=== PATIENT | female | born 1970 | race Caucasian/White ===

== ENCOUNTER → 2020-07-24 15:30 | Outpatient (BNVA) | payer MEDICARE, MEDICAID, SELFPAY | PROVIDERS: Family Provider Nurse Practitioner Family; PCP Nurse Practitioner Family; Visit Provider Nurse Practitioner Family | DX: E11.9 Type 2 diabetes mellitus without complications (principal) | CPT/HCPCS: 83036 ==

== ENCOUNTER → 2020-08-01 13:26 | Outpatient (BNVA) | payer MEDICARE, MEDICAID, SELFPAY | PROVIDERS: Family Provider Nurse Practitioner Family; PCP Nurse Practitioner Family; Visit Provider Nurse Practitioner Family | DX: E11.9 Type 2 diabetes mellitus without complications (principal) | CPT/HCPCS: 80053; 80061; 82043; 84439; 84443 ==

== ENCOUNTER → 2020-12-25 08:42 | Outpatient (BNVA) | payer MEDICARE, MEDICAID, SELFPAY | PROVIDERS: Family Provider Nurse Practitioner Family; PCP Nurse Practitioner Family; Visit Provider Psychiatry & Neurology Psychiatry | DX: F43.12 Post-traumatic stress disorder, chronic (principal); F33.2 Major depressive disorder, recurrent severe without psychotic features; F14.21 Cocaine dependence, in remission; F10.21 Alcohol dependence, in remission | CPT/HCPCS: 99204 ==

== ENCOUNTER → 2021-01-04 10:48 | Outpatient (BNVA) | payer MEDICARE, MEDICAID, SELFPAY | PROVIDERS: Family Provider Nurse Practitioner Family; PCP Nurse Practitioner Family; Visit Provider Nurse Practitioner Family | DX: R05 Cough (principal); G25.81 Restless legs syndrome | CPT/HCPCS: 71046 ==

== ENCOUNTER → 2021-01-31 13:38 | Outpatient (BNVA) | payer MEDICARE, MEDICAID, SELFPAY | PROVIDERS: Family Provider Nurse Practitioner Family; PCP Nurse Practitioner Family; Visit Provider Nurse Practitioner Family | DX: Z96.7 Presence of other bone and tendon implants (principal); W19.XXXA Unspecified fall, initial encounter; M25.532 Pain in left wrist; M79.602 Pain in left arm; S63.502A Unspecified sprain of left wrist, initial encounter | CPT/HCPCS: 73090; 73110 ==

== ENCOUNTER → 2021-02-22 13:47 | Outpatient (BNVA) | payer MEDICARE, MEDICAID, SELFPAY | PROVIDERS: Family Provider Nurse Practitioner Family; PCP Nurse Practitioner Family; Visit Provider Counselor Professional | DX: F10.20 Alcohol dependence, uncomplicated (principal); F43.12 Post-traumatic stress disorder, chronic; F33.2 Major depressive disorder, recurrent severe without psychotic features | CPT/HCPCS: 90834 ==

== ENCOUNTER → 2021-03-12 08:50 | Outpatient (BNVA) | payer MEDICARE, MEDICAID, SELFPAY | PROVIDERS: Family Provider Nurse Practitioner Family; PCP Nurse Practitioner Family; Visit Provider Nurse Practitioner | DX: F43.12 Post-traumatic stress disorder, chronic (principal); F43.10 Post-traumatic stress disorder, unspecified; F33.2 Major depressive disorder, recurrent severe without psychotic features; F14.21 Cocaine dependence, in remission; F10.21 Alcohol dependence, in remission; E11.9 Type 2 diabetes mellitus without complications | CPT/HCPCS: 99214 ==

== ENCOUNTER 2021-04-24 12:18 | Emergency (ER) | payer MEDICARE, MEDICAID, SELFPAY ==
[2021-04-24 12:40] VITALS: BP 172/91; PULSE 79; RESP 16; TEMP 36.4; O2SAT 97; BMI 36.2
[2021-04-24 13:01] VITALS: BP 206/128; PULSE 83; RESP 17; O2SAT 97
--- NOTE | 2021-04-24 13:02 | XRR_ITS ---
PROCEDURE INFORMATION: Exam: XR Chest Exam date and time: 04/24/2021 1:02 PM Age: 50 years old Clinical indication: Pain; Angina and shortness of breath; Angina pectoris; Additional info: CONNOR Webster TECHNIQUE: Imaging protocol: XR of the chest. Views: Frontal portable upright view of the chest. COMPARISON: CR XR chest 2V* [id number] 01/04/2021 10:59 AM FINDINGS: Tubes, catheters and devices: EKG leads are present overlying the chest. Lungs: The lungs are clear bilaterally. The pulmonary vasculature is normal. Pleural spaces: No pleural effusion. No pneumothorax. Heart/Mediastinum: The heart is normal in size and contour. Bones/joints: Healed posterolateral left 8th rib fracture redemonstrated. XR/XR chest 1V portable [id number] IMPRESSION: No acute cardiopulmonary abnormality identified.
--- NOTE | 2021-04-24 13:02 | CT_ITS ---
WS: [id number] CT HEAD TECHNIQUE: Noncontrast CT of the head obtained from the skullbase to the vertex. CLINICAL INFORMATION: worst headache of her life, severe htn COMPARISON: None. DLP: 1729.[address] scans at [facility] use at least one of these dose optimization techniques: automat ed exposure control; mA and/or kV adjustment per patient size (includes targeted exams where dose is matched to clinical indication); or iterative reconstruction. FINDINGS: No evidence of intracranial hemorrhage or mass effect. Ventricular system and basal cisterns are christiansen nt. Mild to moderate small vessel changes with mild to moderate parenchymal volume loss. No extra-ax ial fluid collections. No evidence of mass or mass effect. Normal aldrich-white differentiation. Inciden keith slightly low-lying cerebral tonsils. Normal fourth ventricle. No hydrocephalus. Paranasal sinuses and mastoid air cells are well aerated. .Normal visualized soft tissues. CT/CT head wo con* [id number] IMPRESSION: 1. No evidence of intracranial hemorrhage or mass effect. 2. Normal aldrich-white differentiation. 3. No acute intracranial findings.
--- NOTE | 2021-04-24 13:04 | ECG_ITS ---
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 Measurements Intervals [place] Rate: 78 P: 8 VT: 161 QRS: 1 QRSD: 80 T: 26 QT: 393 QTc: 449 Interpretive Statements SINUS RHYTHM LOW QRS VOLTAGE IN PRECORDIAL LEADS [QRS DEFLECTION < 1.0 mV IN CHEST LEADS] No previous ECG available for comparison Electronically Signed On 04-25-2021 0:26:35 CDT by Trevor Barnard M.D. [id number]
[2021-04-24 13:17] LABS: Basophils % 0.4 %; Eosinophils # 0.1 10^3/uL (0.0-0.8); Eosinophils % 2.2 %; Hematocrit 37.5 % (37.0-47.0); Hemoglobin 12.5 g/dL (11.5-15.3); Lymphocytes # 0.9 10^3/uL (0.8-4.8); Lymphocytes % 20.7 %; Mean Corpuscular HGB Conc 33.3 g/dL (30.0-36.0); Mean Corpuscular Hemoglobin 33.7 pg (28.0-34.0); Mean Corpuscular Volume 101.1 fL (81-99); Mean Platelet Volume 11.2 fL (7.4-10.4); Monocytes # 0.5 10^3/uL (0.2-0.9); Monocytes % 10.1 %; Neutrophils % 65.9 %; Nucleated Red Blood Cells % 0 %; Platelet Count 133 10^3/cmm (130-400); Red Blood Count 3.71 10^6/uL (4.1-5.3); Red Cell Distribution Width 12.5 % (12.1-15.1); White Blood Count 4.6 10^3/uL (4.0-10.0)
[2021-04-24 14:10] LABS: Troponin(5th) Baseline 9 ng/L (0-10)
[2021-04-24 14:18] LABS: Alanine Aminotransferase 23 U/L (0-33); Albumin Level 3.8 g/dL (3.5-5.2); Alkaline Phosphatase 72 IU/L (35-105); Aspartate Amino Transferase 22 U/L (0-32); Blood Urea Nitrogen 6 mg/dL (6-20); C Reactive Protein 26.1 mg/L (0.0-4.9); Calcium 8.6 mg/dL (8.5-10.5); Carbon Dioxide 24 mmol/L (22-29); Chloride 102 mmol/L (98-107); Globulin 3.3 g/dL (1.3-4.6); Glomerular Filtration Rate 131.1 mL/min (90-130); Glucose 134 mg/dL (65-115); NT Pro B Type Natriuretic Pept 384 pg/mL (0-125); Osmolality Calculated 282 mOsm/kg (285-295); Sodium 136 mmol/L (136-145); Thyroid Stimulating Hormone 0.74 uIU/mL (0.27-4.20); Total Bilirubin 0.3 mg/dL (0.15-1.2); Total Protein 7.1 g/dL (6.6-8.7)
[2021-04-24 14:36] LABS: Add Urine Microscopic? NO; Charge for UA Resulting for Rev
[2021-04-24 14:42] VITALS: BP 195/113; PULSE 88; RESP 16; O2SAT 96
[2021-04-24 14:43] LABS: HCG Qualitative Urine. Negative (Negative)
[2021-04-24 14:47] LABS: Bilirubin Urine Neg (Negative); Blood Urine Neg (Negative); Glucose Urine UA Norm (Normal); Ketones Urine Negative (Negative); Leukocyte Esterase Urine Negative (Negative); Nitrate Urine Negative (Negative); Protein Urine Neg (Negative); Urine Appearance Clear (CLEAR); Urine Color Yellow (Yellow); Urobilinogen Urine Norm (Negative); pH Urine 7 (5-7)
--- NOTE | 2021-04-24 15:04 | ECG_ITS ---
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 Measurements Intervals [place] Rate: P: MA: QRS: 0 QRSD: T: 0 QT: QTc: Interpretive Statements Possible normal sinus rhythm NO FURTHER INTERPRETATION POSSIBLE ATYPICAL ECG Compared to ECG 04/24/2021 13:11:54 No significant changes Electronically Signed On 04-25-2021 0:52:06 CDT by Trevor Barnard M.D. [id number]
--- NOTE | 2021-04-24 15:04 | ED_ITS ---
HPI - General Adult General: Chief complaint: General Medical Stated complaint: Lower back pain, swolen legs/ R arm, Headache Time Seen by Provider: 04/24/21 12:53 Source: patient and RN notes reviewed Mode of arrival: ambulatory Limitations: no limitations History of Present Illness: HPI narrative: Patient is a 50-year-old female with a history of diabetes mellitus, hypertension, obesity, who presented to the emergency department with complaints of headache, gait difficulties, swelling in both legs and right arm pain. Symptoms started yesterday and got much worse today. She states that this is the worst headache of her life. She denies any falls or head injury. She is here to be evaluated for this. Onset (ago): day(s) (1) Location: head, upper extremity and lower extremity Severity: moderate Quality: stabbing Pain Consistency: constant Relieving factors: none Exacerbating factors: none Associated symptoms: Reports headache(s) and malaise; Deny chest pain, confusion, cough, diaphoresis, decreased appetite, dyspnea, fevers/chills, nausea, rash, palpitations, seizures, short of breath, syncope, vomiting or weakness Review of Systems General: Reports: 10 or more systems reviewed and unremarkable except in HPI and below Const: Reports: malaise; Denies: diaphoresis Card: Denies: chest pain, palpitations or syncope Resp: Denies: dyspnea GI: Denies: nausea or vomiting Skin/Breast: Denies: rash Neuro: Reports: headache(s); Denies: confusion PFSH ED PFSH: Medical History (Reviewed 05/08/21 @ 12:30 by Solitario Shultz MD, [facility]) Diabetes mellitus GERD (gastroesophageal reflux disease) RLS (restless legs syndrome) Surgical History (Reviewed 05/08/21 @ 12:30 by Solitario Shultz MD, [facility]) History of hip surgery History of hysterectomy Social History (Reviewed 05/08/21 @ 12:30 by Solitario Shultz MD, [facility]) Smoking and tobacco status: current every day smoker (2 packs per week) cigarettes Alcohol intake: current Alcohol intake frequency: few times a week Physical Exam Const: COMMON NORMALS: no acute distress, average body habitus, patient oriented x3, no limitations, healthy appearing, alert and well nourished HENMT: COMMON NORMALS: normocephalic, atraumatic and moist oral mucous membranes HEAD & SCALP: normocephalic and atraumatic Neck/C-Spine: COMMON NORMALS: no meningeal signs and no JVD Resp: COMMON NORMALS: normal respiratory effort, No retractions, No use of accessory muscles, clear to auscultation bilaterally and percussion normal AUSCULTATION: clear to auscultation bilaterally PERCUSSION: percussion normal Cardio: COMMON NORMALS: no JVD, regular rate, regular rhythm, S1 normal heart sound present, S2 normal heart sound present, No gallops present (Cardio), No clicks present (Cardio), No murmurs present (Cardio), No rub (Cardio) and Peripheral pulses 2+ throughout RATE: regular rate RHYTHM: regular rhythm HEART SOUNDS: S1 normal heart sound present and S2 normal heart sound present PERIPHERAL PULSES: Peripheral pulses 2+ throughout GI: COMMON NORMALS: Normal to inspection, nondistended, normoactive bowel sounds present, Soft to palpation, non-tender, No hepatosplenomegaly present, no masses and no bruits PALPATION: Yes Soft to palpation and Yes No hepatosplenomegaly present Extremity: COMMON NORMALS: normal to inspection, full ROM, capillary refill normal, no calf tenderness and no pedal edema Neuro: COMMON NORMALS: patient oriented x3 SENSORIUM/ORIENTATION: Yes alert MENINGEAL SIGNS: Yes no meningeal signs Skin: COMMON NORMALS: no rashes or lesions noted, no wounds, turgor normal, no jaundice, no petechiae and no mottling GENERAL SKIN EXAM: no rashes or lesions noted and turgor normal Course Reevaluation(s): Reevaluation #1: Discussed her lab and imaging findings with her including a negative head CT, negative HS troponin x 2. No appreciable edema. Symptoms not consistent with any obvious pathology. Will discharge her home with no new orders. She voiced understanding and all questions answered Time: 16:03 Vital Signs: Vital signs: Vital Signs Temperature 97.5 F L 04/24/21 12:40 Pulse Rate 69 04/24/21 16:56 Respiratory Rate 17 04/24/21 16:56 Blood Pressure 157/112 04/24/21 16:56 Pulse Oximetry 99 04/24/21 16:56 MDM - General Adult MDM Narrative: Medical decision making narrative: 50 year old female who presents to the ED with several non specific concerns. The most serious of which was headache that is the worst of her life Head CT was negative. She also complained of leg swelling that was not noticed on exam but no signs of obvious fluid overload. Evaluation in the ED was unremarkable. She is discharged home with no new orders. Medical Records: Attestation: I reviewed the patient's medical records. Lab Data: Attestation: I reviewed the patient's lab results. Labs: Lab Results 04/24/21 04/24/21 04/24/21 Range/Units 13:01 13:01 13:01 WBC 4.6 (4.0-10.0) 10^3/ uL RBC 3.71 L (4.1-5.3) 10^6/u L Hgb 12.5 (11.5-15.3) g/dL Hct 37.5 (37.0-47.0) % MCV 101.1 H (81-99) fL MCH 33.7 (28.0-34.0) pg MCHC 33.3 (30.0-36.0) g/dL RDW 12.5 (12.1-15.1) % Plt Count 133 (130-400) 10^3/c mm MPV 11.2 H (7.4-10.4) fL Neut % (Auto) 65.9 % Lymph % (Auto) 20.7 % Rowan % (Auto) 10.1 % Eos % (Auto) 2.2 % Baso % (Auto) 0.4 % Neut # (Auto) 3.00 (1.8-7.7) 10^3/u L Lymph # (Auto) 0.9 (0.8-4.8) 10^3/u L Rowan # (Auto) 0.5 (0.2-0.9) 10^3/u L Eos # (Auto) 0.1 (0.0-0.8) 10^3/u L Baso # (Auto) 0.0 (0.0-0.1) 10^3/u L Nucleated RBC % (a uto) 0 % Nucleated RBCs # 0.0 /100WBC Sodium Cancelled Potassium Cancelled Chloride Cancelled Carbon Dioxide Cancelled Anion Gap Cancelled BUN Cancelled Creatinine Cancelled GFR Calculation Cancelled Glucose Cancelled Calculated Osmolal ity Cancelled Calcium Cancelled Total Bilirubin Cancelled AST Cancelled ALT Cancelled Alkaline Phosphata se Cancelled Troponin T Baselin e Cancelled Troponin T 120 Min cocopah (0-10) ng/L Delta Troponin T (0-10) ABS# C-Reactive Protein Cancelled NT-Pro-B Natriuret Pep Cancelled Total Protein Cancelled Albumin Cancelled Globulin Cancelled TSH Cancelled HCG, Qual (Negative) Urine Color (Yellow) Urine Appearance (CLEAR) Urine pH (5-7) Ur Specific Gravit y (1.005-1.030) Urine Protein (Negative) Urine Glucose (UA) (Normal) Urine Ketones (Negative) Urine Blood (Negative) Urine Nitrate (Negative) Urine Bilirubin (Negative) Urine Urobilinogen (Negative) mg/dL Ur Leukocyte Shelley ase (Negative) 04/24/21 04/24/21 04/24/21 Range/Units 13:35 13:35 14:31 WBC (4.0-10.0) 10^3/ uL RBC (4.1-5.3) 10^6/u L Hgb (11.5-15.3) g/dL Hct (37.0-47.0) % MCV (81-99) fL MCH (28.0-34.0) pg MCHC (30.0-36.0) g/dL RDW (12.1-15.1) % Plt Count (130-400) 10^3/c mm MPV (7.4-10.4) fL Neut % (Auto) % Lymph % (Auto) % Rowan % (Auto) % Eos % (Auto) % Baso % (Auto) % Neut # (Auto) (1.8-7.7) 10^3/u L Lymph # (Auto) (0.8-4.8) 10^3/u L Rowan # (Auto) (0.2-0.9) 10^3/u L Eos # (Auto) (0.0-0.8) 10^3/u L Baso # (Auto) (0.0-0.1) 10^3/u L Nucleated RBC % (a uto) % Nucleated RBCs # /100WBC Sodium 136 Potassium 4.0 Chloride 102 Carbon Dioxide 24 Anion Gap 14.0 BUN 6 Creatinine 0.5 GFR Calculation 131.1 H Glucose 134 H Calculated Osmolal ity 282 L Calcium 8.6 Total Bilirubin 0.3 AST 22 ALT 23 Alkaline Phosphata se 72 Troponin T Baselin e 9 Troponin T 120 Min cocopah (0-10) ng/L Delta Troponin T (0-10) ABS# C-Reactive Protein 26.1 H NT-Pro-B Natriuret Pep 384 H Total Protein 7.1 Albumin 3.8 Globulin 3.3 TSH 0.74 HCG, Qual Negative (Negative) Urine Color (Yellow) Urine Appearance (CLEAR) Urine pH (5-7) Ur Specific Gravit y (1.005-1.030) Urine Protein (Negative) Urine Glucose (UA) (Normal) Urine Ketones (Negative) Urine Blood (Negative) Urine Nitrate (Negative) Urine Bilirubin (Negative) Urine Urobilinogen (Negative) mg/dL Ur Leukocyte Shelley ase (Negative) 04/24/21 04/24/21 Range/Units 14:31 15:31 WBC (4.0-10.0) 10^3/ uL RBC (4.1-5.3) 10^6/u L Hgb (11.5-15.3) g/dL Hct (37.0-47.0) % MCV (81-99) fL MCH (28.0-34.0) pg MCHC (30.0-36.0) g/dL RDW (12.1-15.1) % Plt Count (130-400) 10^3/c mm MPV (7.4-10.4) fL Neut % (Auto) % Lymph % (Auto) % Rowan % (Auto) % Eos % (Auto) % Baso % (Auto) % Neut # (Auto) (1.8-7.7) 10^3/u L Lymph # (Auto) (0.8-4.8) 10^3/u L Rowan # (Auto) (0.2-0.9) 10^3/u L Eos # (Auto) (0.0-0.8) 10^3/u L Baso # (Auto) (0.0-0.1) 10^3/u L Nucleated RBC % (a uto) % Nucleated RBCs # /100WBC Sodium Potassium Chloride Carbon Dioxide Anion Gap BUN Creatinine GFR Calculation Glucose Calculated Osmolal ity Calcium Total Bilirubin AST ALT Alkaline Phosphata se Troponin T Baselin e Troponin T 120 Min cocopah 9.24 (0-10) ng/L Delta Troponin T 0.24 (0-10) ABS# C-Reactive Protein NT-Pro-B Natriuret Pep Total Protein Albumin Globulin TSH HCG, Qual (Negative) Urine Color Yellow (Yellow) Urine Appearance Clear (CLEAR) Urine pH 7 (5-7) Ur Specific Gravit y 1.010 (1.005-1.030) Urine Protein Neg (Negative) Urine Glucose (UA) Norm (Normal) Urine Ketones Negative (Negative) Urine Blood Neg (Negative) Urine Nitrate Negative (Negative) Urine Bilirubin Neg (Negative) Urine Urobilinogen Norm (Negative) mg/dL Ur Leukocyte Shelley ase Negative (Negative) Imaging Data^: CXR: Attestation: I personally reviewed and interpreted this imaging study as follows: Radiologist's impression: [address] [id number] ReportSigned Patient: Efrem Hernandez #: [id number]: 1970Acct#:[id number]/Sex: 50 / FADM Date: 04/24/21Loc: ERRoom/Bed:Attending Dr: Ordering Provider/Ordering MD: Solitario Shultz MD, [facility] Date of Service: 04/24/21 Procedure(s): XR chest 1V portable [id number] Accession Number(s): [id number] Report Number: [id number] PROCEDURE INFORMATION: Exam: XR Chest Exam date and time: 04/24/2021 1:02 PM Age: 50 years old Clinical indication: Pain; Angina and shortness of breath; Angina pectoris; Additional info: Cp, SOB TECHNIQUE: Imaging protocol: XR of the chest. Views: Frontal portable upright view of the chest. COMPARISON: CR XR chest 2V* [id number] 01/04/2021 10:59 AM FINDINGS: Tubes, catheters and devices: EKG leads are present overlying the chest. Lungs: The lungs are clear bilaterally. The pulmonary vasculature is normal. Pleural spaces: No pleural effusion. No pneumothorax. Heart/Mediastinum: The heart is normal in size and contour. Bones/joints: Healed posterolateral left 8th rib fracture redemonstrated. XR/XR chest 1V portable [id number] IMPRESSION: No acute cardiopulmonary abnormality identified. Dictated By:Tristen Albrecht MDSigned By:Tristen Albrecht MDSigned Date/Time:04/24/21 1457DD/ 1455 CT Head: Attestation: I personally reviewed and interpreted this imaging study as foll ows: Radiologist's impression: [address], [place] [address]RJ Scan ReportSigned Patient: Efrem Hernandez #: [id number]: 1970Acct#:[id number]/Sex: 50 / FADM Date: 04/24/21Loc: ERRoom/Bed:Attending Dr: Ordering Provider/Ordering MD: Solitario Shultz MD, [facility] Date of Service: 04/24/21 Procedure(s): CT head wo con* [id number] Accession Number(s): [id number] Report Number: [id number] WS: [id number] CT HEAD TECHNIQUE: Noncontrast CT of the head obtained from the skullbase to the vertex. CLINICAL INFORMATION: worst headache of her life, severe htn COMPARISON: None. DLP: 1729.[address] scans at [facility] use at least one of these dose optimization techniques: automated exposure control; mA and/or kV adjustment per patient size (includes targeted exams where dose is matched to clinical indication); or iterative reconstruction. FINDINGS: No evidence of intracranial hemorrhage or mass effect. Ventricular system and basal cisterns are patent. Mild to moderate small vessel changes with mild to moderate parenchymal volume loss. No extra-axial fluid collections. No evidence of mass or mass effect. Normal aldrich-white differentiation. Incidental slightly low-lying cerebral tonsils. Normal fourth ventricle. No hydrocephalus. Paranasal sinuses and mastoid air cells are well aerated. .Normal visualized soft tissues. CT/CT head wo con* [id number] IMPRESSION: 1. No evidence of intracranial hemorrhage or mass effect. 2. Normal aldrich-white differentiation. 3. No acute intracranial findings. Dictated By:Matt King MDSigned By:Matt King MDSigned Date/Time:04/24/21 1341DD/ 1339 EKG Data^: EKG 1: Attestation: I personally reviewed and interpreted this EKG as follows: EKG interpretation date: 04/24/21 EKG interpretation time: 13:12 Prior EKG tracings: not available for review Interpretation: sinus rhythm HR [address] changes Computer generated interpretation: Chest X-Ray 04/24/21 13:02 IMPRESSION: No acute cardiopulmonary abnormality identified. Head CT 04/24/21 13:02 IMPRESSION: 1. No evidence of intracranial hemorrhage or mass effect. 2. Normal aldrich-white differentiation. 3. No acute intracranial findings. EKG 2: Attestation: I personally reviewed and interpreted this EKG as follows: EKG interpretation date: 04/24/21 EKG interpretation time: 15:10 Prior EKG tracings: available for review Interpretation: sinus rhythm HR [address] changes No significant changes from earlier today. Computer generated interpretation: Chest X-Ray 04/24/21 13:02 IMPRESSION: No acute cardiopulmonary abnormality identified. Head CT 04/24/21 13:02 IMPRESSION: 1. No evidence of intracranial hemorrhage or mass effect. 2. Normal aldrich-white differentiation. 3. No acute intracranial findings. Discharge Plan Discharge Patient Disposition: Home Clinical Impression: Hypertensive urgency, Pedal edema Condition: Stable Prescriptions: Continued insulin lispro [Humalog KwikPen Insulin] 100 unit/mL insulin pen See Rx Instructions SUBCUT DIRECTED Qty: 15 RF: 5 venlafaxine [Effexor XR] 75 mg capsule,extended release 24hr 75 mg PO DAILY Qty: 30 RF: 1 prazosin 2 mg capsule 2 mg PO .COMPLEX Qty: 30 RF: 1 trazodone 150 mg tablet 450 mg PO .HS Qty: 90 RF: 2 atorvastatin 10 mg tablet 10 mg PO DAILY Qty: 30 RF: 5 lisinopril 10 mg tablet 10 mg PO DAILY Qty: 30 RF: 5 esomeprazole magnesium 20 mg capsule,delayed release(DR/EC) See Rx Instructions .ROUTE .COMPLEX Qty: 30 RF: 5 insulin detemir U-100 [Levemir FlexTouch U-100 Insuln] 100 unit/mL (3 mL) insulin pen See Rx Instructions .ROUTE .COMPLEX Qty: 15 RF: 3 duloxetine 60 mg capsule,delayed release(DR/EC) See Rx Instructions .ROUTE .COMPLEX Qty: 30 RF: 3 meloxicam 15 mg tablet 15 mg PO DAILY Qty: 90 RF: 0 quetiapine 200 mg tablet See Rx Instructions .ROUTE .COMPLEX Qty: 90 RF: 0 Victoza 3-Tarun 0.6 mg/0.1 mL (18 mg/3 mL) pen injector See Rx Instructions .ROUTE .COMPLEX Qty: 9 RF: 0 metformin 500 mg tablet extended release 24hr 1,000 mg PO BID Qty: 120 RF: 5 pramipexole 0.125 mg tablet See Rx Instructions .ROUTE .COMPLEX Qty: 30 RF: 0 Discharge Orders: Discharge ED (Routine); Ordered 04/24/21 Ordered By: Solitario Shultz Referrals: GIOVANNY Schwartz, STAFF RESEARCH ASSOCIATE [Primary Care Provider] - 1-3 days Discharge Diet: Usual diet Discharge Activity: Increase activity as tolerated Patient Instructions: Leg Edema (ED), Hypertensive Crisis (ED) Activity Restrictions/Additional Instructions: Return for any new or worsening symptoms. Follow-up with primary care provider within 3 days. Take your medications as prescribed. Elevate your legs to reduce swelling. Coding Level of Care Code ED Gym Instructor for Edith Fwd Exam Comprehensive
[2021-04-24] MEDS: ketorolac 30 mg/mL INJ IVP (15:20)
[2021-04-24] MEDS: diphenhydrAMINE 50 mg/mL SDV 1mL IVP (15:20)
[2021-04-24] MEDS: labetalol 5 mg/mL SDV 20mL 10 MG IVP (15:21)
[2021-04-24 15:38] VITALS: BP 165/112; PULSE 71; RESP 21; O2SAT 99
[2021-04-24 16:16] LABS: Troponin 5 2HR 9.24 ng/L (0-10); Troponin 5 2HR Delta 0.24 ABS# (0-10)
[2021-04-24 16:56] VITALS: BP 157/112; PULSE 69; RESP 17; O2SAT 99
== END 2021-04-24 16:30 | disposition home or self-care (01) ==
PROVIDERS: Emergency Provider Family Medicine; PCP Nurse Practitioner Family
DX: I16.0 Hypertensive urgency (principal); R60.0 Localized edema; F17.210 Nicotine dependence, cigarettes, uncomplicated; E11.9 Type 2 diabetes mellitus without complications; I10 Essential (primary) hypertension
CPT/HCPCS: 36415; 70450; 71045; 80053; 81003; 81025; 83880; 84443; 84484; 85025; 86140; 93005; 96374; 96375; 99284; J1200; J1885; J3490

== ENCOUNTER → 2021-04-27 14:38 | Outpatient (BNVA) | payer MEDICARE, MEDICAID, SELFPAY | PROVIDERS: PCP Nurse Practitioner Family; Visit Provider Nurse Practitioner Family | DX: E11.9 Type 2 diabetes mellitus without complications (principal) | CPT/HCPCS: 83036 ==